=== PATIENT | male | born 1995 | race Caucasian/White ===

== ENCOUNTER 2016-11-01 16:54 | Emergency (ER) | payer MEDICAID, OTHER ==
[~2016-11-01] VITALS: Ht 182.9 cm; Wt 64.0 kg
[2016-11-01 17:15] VITALS: Ht 182.9 cm; Wt 64.0 kg
[2016-11-01] MEDS ORDERED: NEOM28.34 TP (18:21)
[2016-11-01] MEDS ORDERED: IBUP-1542 PO (18:21)
[2016-11-01] MEDS ORDERED: NEOMYC/POLYMYX/BACIT 30 GM OINT TOP ONE (18:30)
[2016-11-01 18:52] VITALS: BP 118/64; PULSE 68; RESP 16; TEMP 98.5
--- NOTE | 2016-11-01 20:39 | ERD ---
ER Documentation Chief Complaint Date/Time DATE: 11/01/16 TIME: 20:30 Chief Complaint BURNING SENSATION & BLEEDING FROM PENIS STARTING ON FRIDAY HPI This is a 21-year-old male complaining of penile pain for 5 days. Patient had an unprotected anal sex with his girlfriend without any lubricant use 5 days ago. Patient then developed penile pain inferior to his urinary meatus that is aggravated by retraction of the foreskin. Denies any dysuria, fever, penile discharge, scrotal pain. Denies any bleeding on the affected area. ROS All systems reviewed and are negative except as per history of present illness. Medications Home Meds Active Scripts Neomycn/Baci Zn/Pmyx Bs/Pramox (NEOSPORIN + PAIN RELIEF OINT) 28.3 Gm Oint...g. , 28.3 GM TP BID for 10 Days, #1 TUB Prov:NADINE ALVAREZ 11/01/16 Ibuprofen* (Motrin*) 600 Mg Tab, 600 MG PO Q6H Y for PAIN AND OR ELEVATED TEMP, #30 TAB Prov:NADINE ALVAREZ 11/01/16 Allergies Allergies: Coded Allergies: No Known Allergy (Unverified , 07/16/12) PMhx/Soc Medical and Surgical Hx: pt denies Medical Hx History of Surgery: Yes (LT FINGER) Anesthesia Reaction: No Hx Neurological Disorder: No Hx Respiratory Disorders: No Hx Cardiac Disorders: No Hx Psychiatric Problems: No Hx Miscellaneous Medical Probl: No Hx Alcohol Use: Yes (OOC) Hx Substance Use: Yes (MJ) Hx Tobacco Use: No Smoking Status: Never smoker Physical Exam Vitals Vital Signs Date Time Temp Pulse Resp B/P Pulse Ox O2 Delivery O2 Flow Rate FiO2 11/01/16 18:52 98.5 68 16 118/64 98 Room Air 11/01/16 17:15 98.1 90 16 142/76 98 Physical Exam Physical Exam CONST: Well-developed, well-nourished, in no acute distress. Nontoxic in appearance. HEENT: Atraumatic. Normal Conjunctiva. EOM intact. TM intact. External ear is normal. Clear oropharnyx without erythema. No Uvular deviation. Moist mucous membranes. Supple neck. No meningismus. No submandibular induration. RESP: Clear to auscultation bilaterally. No wheezing. CARDIO: Regular rate and rhythm, no murmurs. ABD: Soft, non tender, non distended. Normal bowel sounds. No McBurney's point tenderness. No guarding or rigidity. No peritoneal signs. SKIN: .No petechiae or rashes. GENITOURINARY: Penis is uncircumcised. Negative for phimosis or paraphimosis. Small tears on the penile frenulum noted inferior to the urinary meatus. No active discharge or bleeding noted. No erythema noted. BACK: No midline or flank tenderness. EXT: No cyanosis or edema. Distal pulses equal and bilateral. NEURO: Awake and alert, appropriate for age Results 24 hrs Current Medications Medications (Trade) Dose Ordered Sig/Paty Route PRN Reason Start Time Stop Time Status Last Admin Dose Admin Neomycin/ Polymyxin/ Bacitracin (Neosporin Topical Oint) 1 applic ONCE ONCE TOP 11/01/16 18:30 11/01/16 18:31 DC 11/01/16 18:48 Procedures/MDM EMERGENCY DEPARTMENT COURSE/MEDICAL DECISION MAKING This is a 21-year-old male who comes to the emergency room secondary to complaints of penile pain for 5 days. Upon examination there, are small skin tears by the penile frenulum inferior to the urinary meatus. Patient is afebrile and there are no penile discharge or lesions noted upon examination. Affected area was cleansed and Neosporin ointment was applied. My primary diagnosis is nontraumatic skin tear of skin. Secondary diagnosis are penile pain Differential diagnoses considered, included but not limited to phimosis, paraphimosis, testicular torsion, epididymitis, balanitis and sexually transmitted disease. Pt is hemodynamically stable upon reassessment. The patient was discharged for outpatient management with a prescription for Neosporin ointment. The patient was advised to followup with their PMD in 1-2 days and to return to the Emergency Department if there are any new or worsening symptoms. The patient understood and agreed with the diagnosis, treatment and plan. Patient is stable for discharge at this time. Departure Diagnosis: Primary Impression: Nontraumatic tear of skin Additional Impression: Penile pain Condition: Stable Patient Instructions: Wound Care Referrals: COMMUNITY CLINICS YOU HAVE RECEIVED A MEDICAL SCREENING EXAM AND THE RESULTS INDICATE THAT YOU DO NOT HAVE A CONDITION THAT REQUIRES URGENT TREATMENT IN THE EMERGENCY DEPARTMENT. FURTHER EVALUATION AND TREATMENT OF YOUR CONDITION CAN WAIT UNTIL YOU ARE SEEN IN YOUR DOCTORS OFFICE WITHIN THE NEXT 1-2 DAYS. IT IS YOUR RESPONSIBILITY TO MAKE AN APPOINTMENT FOR FOLOW-UP CARE. IF YOU HAVE A PRIMARY DOCTOR --you should call your primary doctor and schedule an appointment IF YOU DO NOT HAVE A PRIMARY DOCTOR YOU CAN CALL OUR PHYSICIAN REFERRAL HOTLINE AT IF YOU CAN NOT AFFORD TO SEE A PHYSICIAN YOU CAN CHOSE FROM THE FOLLOWING [facility] [address] [facility] [address] [facility] [address] [facility] [address] [facility] [address] [facility]. [facility] [address] [facility]. [facility] YOU HAVE RECEIVED A MEDICAL SCREENING EXAM AND THE RESULTS INDICATE THAT YOU DO NOT HAVE A CONDITION THAT REQUIRES URGENT TREATMENT IN THE EMERGENCY DEPARTMENT. FURTHER EVALUATION AND TREATMENT OF YOUR CONDITION CAN WAIT UNTIL YOU ARE SEEN IN YOUR DOCTORS OFFICE WITHIN THE NEXT 1-2 DAYS. IT IS YOUR RESPONSIBILITY TO MAKE AN APPOINTMENT FOR FOLOW-UP CARE. IF YOU HAVE A PRIMARY DOCTOR --you should call your primary doctor and schedule and appointment IF YOU DO NOT HAVE A PRIMARY DOCTOR YOU CAN CALL OUR PHYSICIAN REFERRAL HOTLINE AT . IF YOU CAN NOT AFFORD TO SEE A PHYSICIAN YOU CAN CHOSE FROM THE FOLLOWING [facility]: [facility] [address] [place] [address] [facility] [address] [place] [address] [facility] [address] [place] [address] Additional Instructions: Follow-up with your primary care physician in 1-2 days. Cleanse the wound with soap and water. Apply antibiotic as directed. Return to the emergency department immediately should you have any new or worsening symptoms, uncontrolled fevers, or other unexplained symptoms. Take all medications as directed. NADINE ALVAREZ Nov 01, 2016 20:39
== END 2016-11-01 18:50 | disposition home or self-care (01) ==
LOC: FTE 16:54
DX: S31.21XA Laceration without foreign body of penis, initial encounter (principal); X58.XXXA Exposure to other specified factors, initial encounter; Y92.9 Unspecified place or not applicable
CPT/HCPCS: Z7502; Z7610; 99283

== ENCOUNTER 2016-12-24 22:51 | Emergency (ER) | payer MEDICAID, OTHER ==
[~2016-12-24] VITALS: Ht 170.2 cm; Wt 63.0 kg
[~2016-12-24 22:51] MED LIST: D-ME473S18 PO; IBUP-1542 PO; NEOM28.34 TP
[2016-12-24 22:53] VITALS: Ht 170.2 cm; Wt 63.0 kg
[2016-12-25 00:11] LABS: URINE BLOOD (Dip) POC Negative (NEGATIVE)
[2016-12-25] MEDS ORDERED: CLOT30CR24 TOP (00:18)
--- NOTE | 2016-12-25 00:22 | ERD ---
ER Documentation Chief Complaint Date/Time DATE: 12/25/16 TIME: 00:19 Chief Complaint Redness itching in the tip of the penile area noted 2 days ago HPI 21-year-old male presents here in emergency department for complaint of redness irritation and itching of the tip of the penile area started 2 days ago, complains of pain, burning pain, 4/10 scale, is worse upon touching the area. Patient denies any penile discharge. Patient denies any scrotal pain. Patient denies a or swelling. Patient denies any hematuria or dysuria. Patient did not take any medications to help with symptoms. Patient had a new sexual partner 5 months ago, does not use any protection. Patient's partner does not have any symptoms. ROS All systems reviewed and are negative except as per history of present illness. Medications Home Meds Active Scripts Clotrimazole* (Clotrimazole* AF) 1% - 30 Gm Cream.gm., 1 APPLIC TOP BID for 7 Days, TUB Prov:ALICIA ABREU NP 12/25/16 Dextromethorphan Hb-Promethazine Hcl (Promethazine DM Syrup) 473 Ml Syrup, 5 ML PO Q6 Y for COUGH for 3 Days, ML Prov:HERIBERTO MANCERA PA-C 12/05/16 Neomycn/Baci Zn/Pmyx Bs/Pramox (NEOSPORIN + PAIN RELIEF OINT) 28.3 Gm Oint...g. , 28.3 GM TP BID for 10 Days, #1 TUB Prov:NADINE ALVAREZ 11/01/16 Ibuprofen* (Motrin*) 600 Mg Tab, 600 MG PO Q6H Y for PAIN AND OR ELEVATED TEMP, #30 TAB Prov:NADINE ALVAREZ 11/01/16 Allergies Allergies: Coded Allergies: No Known Allergy (Unverified , 07/16/12) PMhx/Soc History of Surgery: Yes (LT FINGER) Anesthesia Reaction: No Hx Neurological Disorder: No Hx Respiratory Disorders: No Hx Cardiac Disorders: No Hx Psychiatric Problems: No Hx Miscellaneous Medical Probl: No Hx Alcohol Use: Yes (OOC) Hx Substance Use: Yes (MJ) Hx Tobacco Use: No Smoking Status: Never smoker FmHx Family History: No coronary disease, No diabetes, No other Physical Exam Vitals Vital Signs Date Time Temp Pulse Resp B/P Pulse Ox O2 Delivery O2 Flow Rate FiO2 12/24/16 22:53 97.8 99 20 127/74 100 Physical Exam GENERAL: The patient is well developed and appropriate for usual state of health, in no apparent distress. CHEST: Clear to auscultation bilaterally. There are no rales, wheezes or rhonchi. HEART: Regular rate and rhythm. No murmurs, clicks, rubs or gallops. No S3 or S4. ABDOMEN: Soft, nontender and nondistended. Good bowel sounds. No rebound or guarding. No gross peritonitis. No gross organomegaly or masses. No Sawyer sign or McBurney point tenderness. BACK: No midline or flank tenderness. EXTREMITIES: Equal pulses bilaterally. There is no peripheral clubbing, cyanosis or edema. No focal swelling or erythema. Full range of motion. Grossly neurovascularly intact. NEURO: Alert and oriented. Cranial nerves 2-12 intact. Motor strength in all 4 extremities with 5/5 strength. Sensation grossly intact. Normal speech and gait. SKIN: There is no apparent rash or petechia. The skin is warm and dry. HEMATOLOGIC AND LYMPHATIC: There is no evidence of excessive bruising or lymphedema. No gross cervical, axillary, or inguinal lymphadenopathy. : Noted erythema and tenderness on palpation on the glans penis, no discharge noted, no scrotal swelling, tenderness or redness noted. No other lesions noted. Results 24 hrs Laboratory Tests Test 12/25/16 00:11 Bedside Urine pH (LAB) 7.0 Bedside Urine Protein (LAB) Negative Bedside Urine Glucose (UA) Negative Bedside Urine Ketones (LAB) Negative Bedside Urine Blood Negative Bedside Urine Nitrite (LAB) Negative Bedside Urine Leukocyte Esterase (L Negative Current Medications Medications (Trade) Dose Ordered Sig/Paty Route PRN Reason Start Time Stop Time Status Last Admin Dose Admin Ceftriaxone Sodium (Rocephin) 250 mg ONCE ONCE IM 12/25/16 00:30 12/25/16 00:31 12/25/16 00:15 Azithromycin (Zithromax) 1,000 mg ONCE ONCE PO 12/25/16 00:30 12/25/16 00:31 12/25/16 00:13 Patient was given Rocephin and azithromycin for possible STD exposure. Urine GC and chlamydia is pending at this time. Procedures/MDM Medical decision making: Patient symptoms suspect is consistent with balanitis, patient also has new sexual partner, can be a concern for possible STD, urine GC chlamydia is pending at this time but patient was given Rocephin and azithromycin in case this is positive, patient was advised to use protection during sexual intercourse, and have partner tested. Patient was advised to do good foreskin hygiene. Patient was given prescription for clotrimazole 1% cream to apply on affected area. Patient was advised to return to emergency department for any worsening symptoms. No symptoms of orchitis, epididymitis, MRSA infection, or any other symptoms. Departure Diagnosis: Primary Impression: Balanitis Additional Impression: Concern about STD in male without diagnosis Condition: Stable Patient Instructions: Teens: STD Symptoms in Men, Balanitis ALICIA ABREU NP Dec 25, 2016 00:22
[2016-12-25] MEDS ORDERED: AZITHROMYCIN 250 MG TAB PO ONE (00:30)
[2016-12-25] MEDS ORDERED: CEFTRIAXONE 250 MG INJ IM ONE (00:30)
== END 2016-12-25 00:29 | disposition home or self-care (01) ==
LOC: FTE 22:51
DX: N48.1 Balanitis (principal)
CPT/HCPCS: 81003; 96372; J0696; Z7502; Z7610